=== PATIENT | female | born 1950 | race Caucasian/White ===

== ENCOUNTER 2019-03-02 13:31 | Inpatient (IN) ==
[2019-03-02] MEDS ORDERED: ZOFRAN IV PRN (18:35)
[2019-03-02] MEDS ORDERED: ATARAX PO PRN (18:37)
[2019-03-02] MEDS ORDERED: BENTYL PO PRN (18:37)
[2019-03-02] MEDS ORDERED: M.V.I.-12 10 ML, FOLIC ACID 1 MG, MAGNESIUM SULFATE 1 GM, THIAMINE 100 MG in NS 1,000 ML IV ONE (20:00)
[2019-03-02 20:19] LABS: AGAP 8; BUN 8 mg/dL (8-22); CHLORIDE 103 mmol/L (98-107); COSMO 272; CREATININE 0.7 mg/dL (0.5-0.9); ESTIMATED GFR > 60; GLUCOSE 93 mg/dL (70-104); POTASSIUM 3.5 mmol/L (3.5-5.1); SODIUM 137 mmol/L (136-145); TCO2 26 mmol/L (25-35)
[2019-03-02] MEDS: ROCEPHIN 1 GM in NS 50 ML IV SCH (22:02)
[2019-03-02] MEDS: PROTONIX IV SCH (22:02)
--- NOTE | 2019-03-02 22:52 | HISTORY AND PHYSICAL ---
ADDENDUM: Ms. Davis is a transfer from [facility] today. She was admitted over there on 02/28/2019 because of altered mental status. She was found to have possible UTI and lactic acidosis. Ms. Davis has a history of severe esophageal obstruction and dysphagia. In 2018 she was seen over here where Dr. Diallo did an EGD and had to send her to [facility] for cardiothoracic surgeon to evaluate. In any case, she has had multiple admissions to [facility], I understand, because of esophageal stricture and dysphagia. At one point she was evaluated for PEG tube, which never came to fruition. In any case, she presented to [facility] where she was evaluated. She was brought over here because she continued to be p.o. intolerant, and they are concerned that she is going to need further GI evaluation which they cannot do over there. Her physical exam for the most part is unremarkable. She is a very poor historian. Her current blood pressure is 115/57, pulse of 68, respirations 18, temperature 98.5 degrees. The patient was saturating 97% on room air. She denies any abdominal pain. No current imaging studies. ASSESSMENT: 1. Altered mental status. 2. Intractable nausea and vomiting. 3. History of dysphagia. 4. History of esophageal stenosis. 5. Chronic smoker. 6. Chronic alcohol use and abuse, with concern of withdrawal. PLAN: For now we are going to continue with IV fluids. Continue replacing all electrolyte and mineral/vitamin deficiencies. Keep Ms. Davis NPO, treat the possible UTI, re-evaluate her in the morning and then get GI to see her. Please refer to the details of the H and P which has been dictated by the POWER PRESS OPERATOR in the chart. I have discussed the plan with her. cc: Seymour Lord MD
[2019-03-02] MEDS: NS 1,000 ML IV SCH (23:45)
--- NOTE | 2019-03-03 00:42 | HISTORY AND PHYSICAL ---
CHIEF COMPLAINT: Dysphagia with known esophageal stricture. HISTORY OF PRESENT ILLNESS: Ms. Davis is a 68-year-old female with a history of hypertension, hyperlipidemia, schizophrenia, and esophageal stricture. She was admitted to [facility] 3 days prior, diagnosed with a urinary tract infection and started on antibiotics. It was noted that Ms Davis was having difficulty swallowing food. According to their records, she then went into alcohol withdrawal, was given Ativan p.r.n. Last night and today as she was improving it was noted that she was having dysphagia. On talking to the patient and her daughter, they found that she had a history of esophageal stricture with dilatations in the past and felt that the patient warranted being evaluated at a facility with Gastroenterology. Therefore, she was transferred to [facility]. Ms. Davis on exam is very drowsy. She is slow to answer but she will, is cooperative and will answer questions. She was able to drink a few sips of water, small sips, during my exam although on the 3rd sip she did gag somewhat. She cannot remember when she followed up with Gastroenterology last. In reviewing the records from [facility], she did appear to have a urinary tract infection having bacteria and being nitrite positive. She was treated with Rocephin. Cultures have not returned. Ms Davis denies any urinary symptoms. PAST MEDICAL HISTORY: 1. Schizophrenia. 2. Hypertension. 3. Hyperlipidemia. 4. Esophageal stricture. 5. Hyponatremia that was felt to be Remeron. PAST SURGICAL HISTORY: Esophageal dilatations. SOCIAL HISTORY: She smokes 4 to 5 cigars a day. The daughter states the patient has not drank alcohol in 2 years, although the patient states that she has been drinking and that she drinks daily so I am not sure about that. She denies any illicit drug use. ALLERGIES: [place] juice although she is unable to tell what kind of allergy. FAMILY HISTORY: Her mother secondary to natural causes. Her father from cancer, although she is unsure of the type. LABORATORIES: Urine and urine culture have been ordered CBC and CMP in the morning. REVIEW OF SYSTEMS: Discussed with the patient with pertinent positives stated in the HPI. She denied any syncope or dizziness, any chest pain or palpitations, any shortness of breath, cough, fever, chills, any diarrhea or constipation, black or bloody vomitus or stools, hematuria, dysuria, frequency, urgency. PHYSICAL EXAMINATION: GENERAL: This is a 68-year-old female who is lying on the bed in no distress. VITAL SIGNS: Blood pressure is 159/50 with a heart rate of 68, respirations are 20, O2 saturation is 97% on room air, temperature is 98.5 degrees. HEENT: Head is normocephalic, atraumatic. Mucous membranes are moist. NECK: Supple with trachea midline. CARDIOVASCULAR: Regular rate and rhythm. S1 and S2 appreciated. No murmur. PULMONARY: Breath sounds are clear with no increased work of breathing noted. Chest rises and falls symmetric with respiration. Chest wall is nontender to palpation. GASTROINTESTINAL: Abdomen is soft, nontender, nondistended with bowel sounds in all 4 quadrants. NEUROLOGIC: She is drowsy. She is oriented to herself. She could tell me the date. ASSESSMENT AND PLAN: 1. Dysphagia secondary to esophageal stricture. She did swallow 3 sips of liquid although she did gag somewhat on the 3rd. She did not vomit. Let her have sips of clear liquids. We will give a banana bag followed by alternating with saline. We will consult Gastroenterology. 2. Urinary tract infection. Urinalysis, urine culture have been ordered. We will continue Rocephin and further antibiotics will be culture driven. 3. Reported alcohol withdrawal. The patient states that she drinks alcohol daily although the nursing staff say that the daughter said the patient has not drank in 2 years. We will monitor. We can use some Atarax for anxiety and Ativan 0.5 q.4 hours as needed. We will check a CMP and CBC in the morning. Plan was discussed with Dr. Lord. Further treatments pending hospital course. Dictated by RODRIGO Kapoor for Seymour Lord MD cc: RODRIGO Kapoor MD
[2019-03-03 06:38] LABS: URINE SOURCE VOIDED
[2019-03-03 06:39] LABS: BILIRUBIN URINE NEGATIVE (NEGATIVE); BLOOD URINE NEGATIVE (NEGATIVE); COLOR YELLOW; GLUCOSE URINE NEGATIVE (NEGATIVE); KETONE URINE NEGATIVE (NEGATIVE); LEUKOCYTES URINE NEGATIVE (NEGATIVE); NITRITE URINE NEGATIVE (NEGATIVE); PH URINE 6.5; PROTEIN URINE TRACE mg/dL (NEGATIVE); SP GRAVITY URINE 1.012; TURBIDITY URINE CLEAR (CLEAR); UR EPITHELIAL CELLS <10 /HPF (<10); URINE BACTERIA NEGATIVE /HPF; URINE RBC <10 /HPF (<10); URINE WBC <10 /HPF (<10); UROBILINOGEN URINE NORMAL (NORMAL)
[2019-03-03 08:36] LABS: BASO# 0.03 X1000 (0.0-0.2); BASO% 0.7 % (0.0-0.8); EOS# 0.06 X1000 (0.0-0.7); EOS% 1.4 % (0.0-10.0); HEMOGLOBIN 10.8 g/dL (12.0-16.0); LYMPH# 1.18 X1000 (1.2-3.4); LYMPH% 26.6 % (20.5-51.1); MCH 30.5 PG (27-31); MCHC 32.7 g/dL (33-37); MCV 93.2 FL (81-99); MONO# 0.22 X1000 (0.11-0.59); NEUT# 2.95 X1000 (1.4-6.5); NEUT% 66.3 % (42.2-75.2); PLT 228 X1000 (130-400); RBC 3.54 XMIL (4.2-5.4); RDW 12.6 % (11.5-14.5); WBC 4.44 X1000 (4.8-10.8)
[2019-03-03 09:14] LABS: AGAP 12; ALB/GLOB RATIO 1.2; ALBUMIN 3.4 g/dL (3.5-5.0); ALKALINE PHOSPHATASE 54 U/L (32-104); BUN 6 mg/dL (8-22); CALCIUM 8.8 mg/dL (8.8-10.2); CHLORIDE 107 mmol/L (98-107); COSMO 281; CREATININE 0.7 mg/dL (0.5-0.9); ESTIMATED GFR > 60; GLUCOSE 97 mg/dL (70-104); GOT 23 U/L (10-30); GPT 9 U/L (10-36); POTASSIUM 3.7 mmol/L (3.5-5.1); SODIUM 142 mmol/L (136-145); TCO2 23 mmol/L (25-35); TOTAL PROTEIN 6.2 g/dL (6.3-8.3)
[2019-03-03] MEDS: NS 1,000 ML IV SCH (09:38)
--- NOTE | 2019-03-03 12:24 | PROGRESS NOTE ---
DATE: 03/03/2019 SUBJECTIVE: This morning Ms. Dvais refers to be doing well. She was actually taking a clear liquid diet. At some point she asks me if we thought she was crazy. I told her no, nobody ever said that. OBJECTIVE: Vital signs: Blood pressure is 162/56, pulse of 80, respirations 18, temperature 98.4 degrees. The patient is saturating 98%. General: Ms. Davis is a 68-year-old female. She is in bed, no distress. HEENT: Mucosa is pink and moist. Anicteric. Acyanotic. Neck: Supple. Chest: Good air entry bilaterally. There were no crepitations, no rhonchi. Cardiovascular: Regular rate and rhythm. No murmurs, no rubs, no gallops. Gastrointestinal: Abdomen is soft, nontender. Extremities: No pedal edema. Central Nervous System: Patient is awake, alert, and oriented. She is oriented. She is, however, very very soft-spoken, occasionally does not respond to what you are asking. LABORATORY DATA: WBC is 4.44, hemoglobin is 10.8, platelet count of 228,000. Urinalysis is unremarkable. Chemistry is still pending. ASSESSMENT: 1. Altered mental status on presentation secondary to global encephalopathy, improved. Patient's mentation seems to have significantly improved. 2. Intractable nausea and vomiting, resolved. The patient is currently taking liquid diet. We are going to monitor and see how she does. 3. History of dysphagia due to esophageal stenosis, status post multiple esophagogastroduodenoscopy studies both here and in [facility]. 4. Chronic smoker. 5. Chronic alcohol use and abuse with concern of withdrawal on admission. PLAN: In general, I think Ms. Davis is doing well. She is now more awake and alert. She is taking a clear liquid diet. Will advance this later on in the day if she tolerates it. cc: Seymour Lord MD
[2019-03-03] MEDS: ATIVAN IV PRN ×2 (13:01→18:03)
[2019-03-03] MEDS: ROCEPHIN 1 GM in NS 50 ML IV SCH (20:05)
[2019-03-03] MEDS: SODIUM CHLORIDE 0.9% INJ SCH (20:05)
[2019-03-03] MEDS: PROTONIX IV SCH (20:05)
--- NOTE | 2019-03-04 03:25 | GASTROENTEROLOGY CONSULTATION ---
DATE: 03/03/2019 REASON FOR CONSULTATION: Dysphagia history of esophageal stricture. HISTORY OF PRESENT ILLNESS: Ms Carlee Davis is a 68-year-old woman with past medical history of dementia, psychosis, history of stroke, alcoholism, tobacco abuse, history of esophageal stricture, dysphagia, who presented initially to outside hospital with altered mental status, found to have a UTI, lactic acidosis. At the time, she is complaining of inability to tolerate p.o. consistent with prior episodes of dysphagia from known esophageal stricture. The patient is unable to give a history given her altered mental status. REVIEW OF SYSTEMS: Unable to obtain and limited. PAST MEDICAL HISTORY: As stated in HPI. PAST SURGICAL HISTORY: Unable to obtain. FAMILY HISTORY: Unable to obtain. SOCIAL HISTORY: She smokes 2 packs a day and drinks alcohol regularly. No drug use. MEDICATIONS: Home medications not reconciled. ALLERGIES: [place] juice. PHYSICAL EXAMINATION: Vital signs: Temperature 98.2, heart rate 62, respiratory rate 18, blood pressure 157/62, O2 saturation of 97% on room air. General: Patient is awake, oriented to herself, not to place or date. She is not in acute distress. HEENT: Sclerae anicteric. Moist mucous membranes. Extraocular motor intact. Neck: Supple. No JVD or lymphadenopathy. Cardiac: Regular rate and rhythm. No murmurs. Lungs: Clear to auscultation bilaterally, no wheezing. Abdomen: Soft, nontender, nondistended. Normoactive bowel sounds. No rebound or guarding. Extremities: No clubbing, cyanosis, or edema. Neuro: Unable to assess. However, patient is moving all extremities symmetrically. LABS: White count of 4.4, hemoglobin 10.8, platelets of 228,000. Sodium 142, potassium 3.2, chloride of 107, bicarb 23, BUN of 6, creatinine 0.7, total bilirubin of 0.3, AST of 23, ALT of 9, alkaline phosphatase of 54, total protein 6.2, albumin of 3.4. UA shows trace protein. ASSESSMENT AND PLAN: Ms Halina Daivs is a 68-year-old woman with history of schizophrenia, dementia, alcoholism, tobacco abuse, prior esophagitis and stricture, who was transferred from outside hospital after being diagnosed with urinary tract infection, lactic acidosis and for evaluation of gastrointestinal dysphagia with EGD. She is currently tolerating a clear liquid diet without reports of dysphagia or nausea, vomiting. However, she is a poor historian. She is currently on a proton pump inhibitor IV once daily, Ativan, and Atarax with IV fluids, and antibiotics with ceftriaxone. We will plan on monitoring and possible EGD early next week. Consider doing a modified barium swallow in the meantime. Thank you for this consult. We will follow with you. Please call with any questions or concerns.
[2019-03-04] MEDS: NS 1,000 ML IV SCH ×2 (04:58→21:16)
[2019-03-04 07:55] LABS: BASO# 0.02 X1000 (0.0-0.2); BASO% 0.4 % (0.0-0.8); EOS# 0.11 X1000 (0.0-0.7); HEMATOCRIT 32.3 % (37.0-47.0); HEMOGLOBIN 10.3 g/dL (12.0-16.0); LYMPH# 1.25 X1000 (1.2-3.4); LYMPH% 22.7 % (20.5-51.1); MCH 29.6 PG (27-31); MCHC 31.9 g/dL (33-37); MCV 92.8 FL (81-99); MONO# 0.37 X1000 (0.11-0.59); MONO% 6.7 % (1.7-9.3); NEUT# 3.76 X1000 (1.4-6.5); NEUT% 68.2 % (42.2-75.2); PLT 214 X1000 (130-400); RBC 3.48 XMIL (4.2-5.4); RDW 12.4 % (11.5-14.5); WBC 5.51 X1000 (4.8-10.8)
[2019-03-04 08:12] LABS: AGAP 9; ALBUMIN 3.5 g/dL (3.5-5.0); BUN 4 mg/dL (8-22); CHLORIDE 102 mmol/L (98-107); COSMO 274; CREATININE 0.7 mg/dL (0.5-0.9); ESTIMATED GFR > 60; GLUCOSE 91 mg/dL (70-104); MAGNESIUM 1.4 mg/dL (1.5-2.7); PHOSPHORUS 2.8 mg/dL (2.7-4.5); POTASSIUM 3.5 mmol/L (3.5-5.1); SODIUM 139 mmol/L (136-145); TCO2 28 mmol/L (25-35)
[2019-03-04] MEDS ORDERED: MAGNESIUM SULFATE 4 GM/S.W.I. 4 GM/100 ML IVPB IV ONE (08:32)
[2019-03-04] MEDS ORDERED: HALDOL IV ONE (12:26)
--- NOTE | 2019-03-04 17:45 | PROGRESS NOTE ---
DATE: 03/04/2019 SUBJECTIVE: Today, Ms. Davis refers to be doing well. The daughter was at the bedside at the time of the encounter. She denies any new complaints. OBJECTIVE: Vital signs: Blood pressure is 172/60, pulse of 71, respiration is 12, temperature 98.4 degrees. The patient is saturating 100%. General: Ms. Davis is a 68-year-old female. She was in bed, in no distress. HEENT: Mucosa is pink and moist. Anicteric. Acyanotic. Neck: Supple. Chest: Clear to auscultation. No crepitations. No rhonchi. Cardiovascular: Regular rate and rhythm. No murmurs, no rubs, no gallops. GI: Abdomen was soft, nontender. Extremities: No pedal edema. NETWORK ANALYST: Patient is awake, alert, and oriented. Psychiatric: The patient was more interacting with me today. Part of it, I guess because the daughter was at the bedside. She was very adamant that she wanted to be discharged, but she was okay with psych evaluation. LABORATORIES: So far, the patient's urine culture has come back negative. ASSESSMENT: 1. Altered mental status on presentation secondary to global encephalopathy, resolved. 2. Intractable nausea vomiting, improved. 3. Dysphagia due to esophageal stenosis with history of multiple esophagogastroduodenoscopies and esophageal intervention. The patient has been recommended percutaneous endoscopic gastrostomy tube at some point, but she had declined this and she still remains adamant that she does not want any percutaneous endoscopic gastrostomy tube. 4. Chronic smoker. Patient advised. 5. Chronic alcohol use and abuse, concern for alcohol withdrawal delirium on admission. Ms Davis, herself, refers that she drinks wine almost every day. However, the daughter, who was at the bedside, seems to think that for the past 3 years Ms Davis has not used any alcohol. 6. Recently treated for urinary tract infection in an outside facility. Urine culture over here has been negative. The patient is not showing any more signs. She has been on antibiotics for over 5 days, so we are going to discontinue the antimicrobial therapy. cc: Seymour Lord MD
[2019-03-04] MEDS: SODIUM CHLORIDE 0.9% INJ SCH (21:16)
[2019-03-04] MEDS: ROCEPHIN 1 GM in NS 50 ML IV SCH (21:16)
[2019-03-04] MEDS: PROTONIX IV SCH (21:16)
--- NOTE | 2019-03-04 23:44 | PROVIDER PROGRESS NOTE ---
Progress Note S: No acute overnight events. She continues to have dysphagia. Family at bedside patient has had multiple esophageal stents in the past and dilations in [place]. She was told that there was nothing more they could offer except PEG tube, which the patient has refused in the past. O: Last Vital Signs Temp 98.5 F 03/04/19 19:51 Pulse 89 03/04/19 19:51 Resp 19 03/04/19 19:51 BP 168/68 03/04/19 19:51 Pulse Ox 100 03/04/19 19:51 Height 5 ft 4 in Weight 97 lb GEN: thin, NAD HEENT: anicteric, MMM NECK: supple, no JVD PULM: CTA, no wheezing ABD: soft NT/ND EXT: no cce NEURO: nonfocal LABS: 03/04/19 03/04/19 07:29 07:29 WBC 5.51 Hgb 10.3 L Plt Count 214 Sodium 139 Potassium 3.5 Chloride 102 Carbon Dioxide 28 BUN 4 L Creatinine 0.7 Albumin 3.5 ASSESSMENT AND PLAN: Ms Halina Davis is a 68-year-old woman with history of schizophrenia, dementia, alcoholism, tobacco abuse, h/o esophagitis and severe stricture requiring serial dilations and stents in the past, who was transferred from outside hospital after being diagnosed with urinary tract infection, lactic acidosis and for evaluation of gastrointestinal dysphagia with EGD. She is currently tolerating a clear liquids. Will plan for diagnostic EGD tomorrow with Dr. Helms. She maintains that she does not want PEG tube. NPO after MN # Dysphagia # H/o esophageal strictures # UTI # Anemia # Dementia # Alcoholism # Tobacco abuse
[2019-03-05] MEDS: NS 1,000 ML IV SCH ×2 (05:16→13:29)
[2019-03-05] MEDS ORDERED: DIPRIVAN 1% ONE (08:50)
[2019-03-05] MEDS ORDERED: XYLOCAINE-MPF 2% ONE (08:51)
--- NOTE | 2019-03-05 09:34 | ENDOSCOPY OPERATIVE NOTE ---
[facility] ENDOSCOPY OPERATIVE NOTE , EGD WITH DILATION PROCEDURE REPORT EXAM DATE: 03/05/2019 PATIENT NAME: Halina Davis MR#: [id number] BIRTHDATE: 1950 ATTENDING: Rivera Helms MD STATUS: inpatient LABORER GENERAL: Miryam Marques and Leonora Donald INDICATIONS: The patient is a 68 yr old female here for an EGD with dilation due to Dysphagia, H/o e sophageal strictures requiring dilations at [facility], UTI, Anemia. PROCEDURE PERFORMED: EGD w/ balloon dilation of esophagus MEDICATIONS: Per Anesthesia TOPICAL ANESTHETIC: CONSENT: The patient understands the risks and benefits of the procedure and understands that these r isks include, but are not limited to: sedation, allergic reaction, infection, perforation and/or bleeding. Alternative means of evaluation and treatment include, among others: physical exam, x-rays, and/or surgical intervention. The patient elects to proceed with this endoscopic procedure. HISTORY AND PHYSICAL: 03/05/2019 DESCRIPTION OF PROCEDURE: During pre-op preparation period all mechanical and medical equipment was c hecked for proper function. Hand hygiene and appropriate measures for infection prevention was taken. After the risks, benefits and alternatives of the procedure were thoroughly explained, Informed consent was verified, confirmed and timeout was successfully executed by the treatment team. The patient was anesthetized with topical anesthesia and the [id number] ([id number]) endoscope was introduced through the mouth and advanced to the esophagus mid. The instrume nt was slowly withdrawn as the mucosa was fully examined. ESOPHAGUS: There was a severe stricture with an inner diameter of 5mm 33 cm from the incisors and in the lower third of the esophagus. The stricture was not traversable. Using a TTS-balloon the stricture was dilated up to 8mm. The balloon was held inflated for 30 seconds. Following this dilation, there was a small amount of heme. Food was noted in the proximal and mid esophagus- Suctioned out. Dilation was performed at mid esophagus and distal esophagus. DILATOR: SIZE(S): RESISTANCE: HEME: APPEARANCE: Dilator: Balloon Size(s): 6-7-8 Resistance: moderate Heme: yes Appearance: adequate COMMENT: Scope could not traverse post dilation Retroflexion of the stomach was not performed. ADVERSE EVENTS: There were no complications. IMPRESSIONS: There was a stricture with an inner diameter of 5mm 33 cm from the incisors and in t he lower third of the esophagus; Using a TTS-balloon the stricture was dilated up to 8mm; The balloon was held inflated for 30 seconds; Following this dilation, there was a small amount of heme RECOMMENDATIONS: Start Clear Liquid diet for now and advance to Full liquids PPI BID Repeat EGD with dilation in 2 weeks REPEAT EXAM: Return in 2 weeks for EGD. Rivera Helms MD eSigned: Rivera Helms MD 03/05/2019 9:33 AM cc: CPT CODES: 31404 Upper gastrointestinal endoscopy including esophagus, stomach, and either the du odenum and/or jejunum as appropriate; with balloon dilation of esophagus (less than 30 mm diameter) ICD CODES: 530.3 Stricture and stenosis of esophagus The ICD and CPT codes recommended by this software are interpretations from the data that the [facility] staff has captured with the software. The verification of the translation of this report to the ICD and CPT co javier and modifiers is the sole responsibility of the health care institution and practicing physician where this report was generated. [employer] will not be held responsible for the validity of the ICD and CPT codes i ncluded on this report. A assumes no liability for data contained or not contained herein. CPT is a registered tra demark of the [employer]. PATIENT NAME: Halina Davis MR#: [id number]
[2019-03-05] MEDS: MIRALAX PO SCH (11:12)
--- NOTE | 2019-03-05 13:44 | Diag Imaging Result Doc PS360 ---
EXAM: BA SWALLOW W/VIDEO SPEECH THER 03/05/2019 HISTORY: Dysphagia TECHNIQUE: 77 images 18 mGy, 22 seconds fluoroscopy time. COMMENT: The patient was able to swallow various consistencies of barium without aspiration. There is a tight stricture of the mid thoracic esophagus with dilatation proximally and relatively little peristalsis. The portion of the esophagus distal to the stricture appears fairly smooth without evidence of mucosal abnormality. This appearance was also present at the time the previous study of 09/23/2017. The stricture was also demonstrated on the upper GI series of 03/05/2011. IMPRESSION: Chronic esophageal stricture. Electronically signed by Dileep Galloway 03/05/2019 1:42 PM
[2019-03-05] MEDS: ROCEPHIN 1 GM in NS 50 ML IV SCH (21:25)
[2019-03-05] MEDS: SODIUM CHLORIDE 0.9% INJ SCH (21:25)
[2019-03-05] MEDS: PROTONIX IV SCH (21:25)
[2019-03-06] MEDS: NS 1,000 ML IV SCH (06:07)
[2019-03-06 07:15] VITALS: BP 131/92
[2019-03-06] MEDS: MIRALAX PO SCH (08:36)
--- NOTE | 2019-03-06 11:26 | GASTROENTEROLOGY PROGRESS NOTE ---
DATE: 03/06/2019 SUBJECTIVE: Ms. Davis is a 68-year-old, female resting in bed, family at the bedside. The patient says that her nausea and vomiting is under control and has denied having any abdominal pain. She is currently on clear liquid diet and she has been tolerating her diet well. and is not having any swalloing problem. The patient has denied having any bowel movements today. OBJECTIVE: Vital Signs: Temperature 98.8 degrees, pulse 80, respirations 14, blood pressure 131/92, oxygen saturation 98% on room air. The patient's weight is 97 pounds. BMI is 16.6 kg/m2. General: She is alert, oriented x2, and in no acute distress. HEENT: Pale conjunctivae. No icterus. PERRL. Neck: Supple. Lungs: Clear to auscultation. Cardiovascular: Regular rate and rhythm. Abdomen: Soft, nontender, nondistended. Active bowel sounds heard in all 4 quadrants. Extremities: No clubbing. No cyanosis. Neurologic: Alert oriented x2. IMAGING AND LABORATORY DATA: Hematology is from 03/04. WBCs 5.51, RBC 3.48, hemoglobin 10.3, hematocrit 32.3, platelet count is 214,000. Chemistries are from 03/04: Sodium is 139, potassium 3.5, chloride 102, carbon dioxide 20, anion gap 9, BUN 4, creatinine is 0.7, glucose 91, calcium 9.0, phosphorus 2.8, magnesium 1.4, total bilirubin 0.30, AST 23, ALT 9, alkaline phos 54, albumin is 3.5. SMBW: Speech modified barium swallow which was done yesterday showed chronic esophageal stricture. EGD FINDINGS: The patient had a stricture with an inner diameter of 5 mm, 33 cm from the incisura and in the lower third of the esophagus. Using the TTS balloon, the stricture was dilated up to 8 mm. IMPRESSION AND PLAN: 1. Dysphagia. 2. History of esophageal strictures. 3. Urinary tract infection. 4. Anemia. 5. Dementia. 6. Alcoholism. 7. Tobacco abuse. PLAN: Ms. Davis is a 68-year-old, female with a history of schizophrenia, alcoholism, tobacco abuse, dementia, and history of esophageal strictures with multiple dilations and stents in the past. GI is following her for her dysphagia. An EGD was done yesterday, she had an esophageal stricture and it was dilated up to 8 mm. Patient has been started on a clear liquid diet. We will advance her diet to full liquids. We will continue her PPIs twice a day. She is currently receiving IV fluids normal saline at 75 mL. She is on antibiotic Rocephin for her UTI per PCP. The patient needs a repeat EGD with dilation in 2 weeks. She has discharged orders to go home today. We will follow her up as an outpatient with Dr. Helms in two weeks. This plan was discussed with Dr. Foster. Please call us for any further questions or concerns. Dictated by RODRIGO Perkins for Shan Foster MD [facility]
--- NOTE | 2019-03-06 23:20 | DISCHARGE SUMMARY ---
ADMISSION DATE: 03/02/2019 DISCHARGE DATE: 03/06/2019 DISPOSITION: Home. FOLLOWUP: Dr. Helms. CONSULTATION DURING THIS ADMISSION: GI was consulted. The patient was seen by Dr. Helms, followed up by Dr. Foster. INVASIVE PROCEDURES DONE THIS ADMISSION: EGD was done. There was a stricture with an inner diameter of 5 mm, 33 cm from the incisors. This was dilated. ADMISSION DIAGNOSES: 1. Dysphagia secondary to esophageal stricture. 2. Urinary tract infection. 3. Reported alcohol withdrawal. DIAGNOSES AT THE TIME OF DISCHARGE: 1. Altered mental status on presentation secondary to global encephalopathy, resolved. 2. Intractable nausea vomiting, improved. 3. Dysphagia secondary to esophageal stricture. Patient is status post esophagogastroduodenoscopy with esophageal dilation. She was supposed to follow up with Dr. Helms/Dr. Foster for repeat EGD within 2 weeks. 4. Chronic smoker. Patient is advised. 5. Chronic alcohol use and abuse with concern for alcohol withdrawal delirium on admission. The patient's mentation has significantly improved. 6. Recently treated for urinary tract infection from an outside facility. A repeat urine culture here was negative. DISCHARGE MEDICATIONS: 1. Carafate 1 g p.o. q.6. 2. Pantoprazole 40 mg b.i.d. PRESENTING COMPLAINT: Dysphagia. HISTORY OF PRESENTING COMPLAINT: Ms Davis is a 68-year-old female with multiple admissions between [facility] and [facility] for almost the same complaints. She has had multiple EGD's with dilatations, came in this time because of inability to swallow, vomiting, altered mental status. The patient was admitted for medical care. HOSPITAL COURSE: Ms Davis was initially kept NPO, was adequately fluid-resuscitated. GI was consulted. A decision was made to do an EGD. This was successfully done. Dilatation was done. Post the EGD, Ms Davis tolerated a clear and full liquid diet. The daughter, who was most times at the bedside, was concerned about Ms Davis's mental health so a screening test was done with [facility], which she did not qualify for an inpatient. She has been advised to follow up with her outpatient mental health provider. Ms Davis was said also to have had a urine tract infection. She was started on IV antibiotics while she was in the hospital, but her urine culture has been negative so this has been discontinued. All her other comorbidities were addressed during the hospital course. Today, we think Ms Davis is stable to be discharged. Her current vitals: Blood pressure is 131/92, pulse of 80, respiration is 14, temperature is 98.8 degrees. The patient is documented to have been eating 100% of her meals today. She will be discharged in stable condition to follow up with Dr. Helms. TIME SPENT FOR DISCHARGE: 38 minutes. cc: MD Dr. Scooter Arce
== END 2019-03-06 14:38 | disposition home or self-care (01) | DRG 392 ==
LOC: SUATTDRO 13:31 → DIRADM 13:31 → 3N 15:59
PROVIDERS: ATTEND Internal Medicine